=== PATIENT | male | born 1955 | race Caucasian/White ===

== ENCOUNTER 2020-03-02 09:39 | Outpatient (CLI) | payer OTHER, SELFPAY ==
[2020-03-05 09:18] LABS: PSA, Ultrasensitive 5.5 ng/mL (<= 4.5)
[2020-03-05 14:06] LABS: Free PSA/PSA Ratio 0.13 ratio
== END 2020-03-02 09:59 ==
PROVIDERS: PCP Internal Medicine; Visit Provider Urology
DX: R97.20 Elevated prostate specific antigen [PSA] (principal)
CPT/HCPCS: 36415; 84153; 84154

== ENCOUNTER 2020-05-25 07:28 | Outpatient (CLI) | payer OTHER, SELFPAY ==
[2020-05-25 23:32] LABS: COVID-19 RT-PCR UVMMC Result Negative (Negative)
== END 2020-05-25 07:48 ==
PROVIDERS: PCP Internal Medicine; Visit Provider Internal Medicine
DX: Z20.828 Contact with and (suspected) exposure to other viral communicable diseases (principal)
CPT/HCPCS: U0003

== ENCOUNTER 2021-03-14 10:15 | Outpatient (CLI) | payer OTHER, SELFPAY ==
[2021-03-15 01:56] LABS: COVID-19 RT-PCR UVMMC Result Negative (Negative)
== END 2021-03-14 10:16 | disposition home or self-care (01) ==
PROVIDERS: PCP Internal Medicine; Visit Provider Physician Assistant
DX: Z20.822 Contact with and (suspected) exposure to COVID-19 (principal)
CPT/HCPCS: U0003

== ENCOUNTER 2021-04-26 02:00 | Outpatient (CLI) | payer OTHER, SELFPAY ==
[2021-04-26 23:03] LABS: PSA, Diagnostic 5.6 ng/mL (0.0-4.5)
== END 2021-04-26 02:01 | disposition home or self-care (01) ==
PROVIDERS: PCP Internal Medicine; Visit Provider Urology
DX: C61 Malignant neoplasm of prostate (principal)
CPT/HCPCS: 36415; 84153

== ENCOUNTER 2021-10-15 08:39 | Outpatient (CLI) | payer OTHER, SELFPAY | END 2021-10-15 08:40 | disposition home or self-care (01) | LOC: LBO 08:39 | PROVIDERS: PCP Internal Medicine; Visit Provider Urology | DX: C61 Malignant neoplasm of prostate (principal) | CPT/HCPCS: 36415; 84153 ==

== ENCOUNTER 2022-05-05 16:26 | Outpatient (REF) | payer OTHER, SELFPAY ==
[2022-05-06 08:10] LABS: PSA, Diagnostic 5.7 ng/mL (<=4.5)
== END 2022-05-05 16:27 | disposition home or self-care (01) ==
LOC: NCHCN 16:26
PROVIDERS: PCP Internal Medicine; Visit Provider Internal Medicine
DX: Z00.00 Encounter for general adult medical examination without abnormal findings (principal); C61 Malignant neoplasm of prostate; R39.89 Other symptoms and signs involving the genitourinary system
CPT/HCPCS: 84153

== ENCOUNTER → 2022-05-22 02:05 | Outpatient (CLI) | payer OTHER, SELFPAY | PROVIDERS: PCP Internal Medicine; Visit Provider Urology ==

== ENCOUNTER 2022-05-22 13:39 | Outpatient (CLI) | payer OTHER, SELFPAY ==
[2022-05-24 11:47] LABS: Free PSA/PSA Ratio 0.23 ratio
== END 2022-05-22 13:40 | disposition home or self-care (01) ==
LOC: LBO 13:39
PROVIDERS: PCP Internal Medicine; Visit Provider Internal Medicine
DX: C61 Malignant neoplasm of prostate (principal)
CPT/HCPCS: 36415; 84154

== ENCOUNTER 2023-01-22 15:02 | Outpatient (REF) | payer BC, SELFPAY ==
--- NOTE | 2023-01-22 12:15 | SKI_PTH ---
PATIENT: Monty Smith LOC: [facility]#:[id number] AGE/SX: 67/M ROOM: RE01/22/[address]: Jeovany Correia : 1955 BED: DIS: 01/22/2023 SPEC #: [id number] RECD: 01/22/23 17:34 STATUS: KAVEH COTTRELL #: [id number] DODIE: 01/22/23 12:[address]: Jeovany Correia DEPT: Surgical Specimen RECD BY: Ana Broussard Tissues: 1 - SKIN BIOPSY(SHAVE/PUNCH) Procedures: SKIN LEVEL 4 Comments: [id number]
== END 2023-01-22 15:03 | disposition home or self-care (01) ==
LOC: NCHCN 15:02
PROVIDERS: PCP Internal Medicine; Visit Provider Internal Medicine
DX: L73.8 Other specified follicular disorders (principal)
CPT/HCPCS: 88305